=== PATIENT | female | born 1975 | race Caucasian/White ===

== ENCOUNTER 2022-02-02 17:44 | Emergency (ER) | payer OTHER ==
[~2022-02-02] VITALS: Ht 162.5 cm; Wt 56.7 kg
[~2022-02-02 17:44] MED LIST: 'BUSPAR5 MG PO; ALBUTEROL0.09 MG/A2 INH; BACTRIM DS 8001 TA1 PO; CIPRO500 MG PO; CIPRODEX 0.3%-7.5 ML OT; CLINDAMYCIN HC300 MG PO; CLINDAMYCIN150 MG PO; CORDROL20 MG PO; DAYPRO600 M1 PO; DIAZEPAM5 MG PO; DOXYCYCLINE MO100 MG PO; ERYTHROMYCIN OPH1 GM OPH; FLAGYL500 MG PO; FLUVOXAMINE50 MG PO; HYDROCODONE BIT1 T11 PO; IBUPROFEN1 CRY PO; LAMICTAL XR25 MG PO; MOTRIN800 MG PO; PREDNICOT20 MG PO; PRILOSEC20 M1 PO; PROBIOTICA100 MILLIO PO; RISPERIDONE2 M2 PO; SEPTRA DS 800 M1 TAB PO; TRAMADOL HCL50 MG PO; VICODIN 5/500 505 MG PO; VICODIN 500 MG-1 TAB PO; ZANTAC150 MG PO; ZITHROMAX Z PA250 MG PO; ZITHROMAX Z-PA250 MG PO
[2022-02-02 18:33] LABS: BASO % 0.4 % (0.0-1.0); EOS # 0.2 10*3/uL (0.0-0.4); EOS % 2.5 % (1.0-4.0); HEMATOCRIT 40.9 % (37.0-47.0); MEAN CELL VOLUME 93.4 fl (81.0-99.0); MEAN CORPUSCULAR HGB 31.3 pg (27.0-31.0); MEAN CORPUSCULAR HGB CONC 33.5 g/dl (33.0-37.0); MEAN PLATELET VOLUME 10.7 fl (9.6-12.3); MONO # 0.6 10*3/uL (0.1-1.0); MONO % 6.5 % (3.0-9.0); NEUT # 6.1 10*3/uL (2.3-7.9); NEUT % 68.3 % (47.0-73.0); PLATELET COUNT AUTOMATED 256 10*3/uL (130-400); RED BLOOD COUNT 4.38 10*6/uL (4.10-5.10); RED CELL DISTRI WIDTH 12.5 % (0-14.5)
[2022-02-02 18:49] LABS: ALKALINE PHOSPHATASE 80 U/L (45-117); BUN 16 mg/dl (7-24); CHLORIDE 106 mmol/L (98-107); CREATININE 0.78 mg/dL (0.55-1.02); POTASSIUM 3.3 mmol/L (3.5-5.1); SGOT/AST 23 IU/L (3-35); SGPT/ALT 24 U/L (12-78); SODIUM 139 mmol/L (136-145); TOTAL PROTEIN 7.8 gm/dL (6.4-8.2)
[2022-02-03 02:34] VITALS: BP 132/68
== END 2022-02-03 03:45 | disposition short-term general hospital (02) ==
LOC: ED 17:44
PROVIDERS: Physician Assistant
DX: L03.213 Periorbital cellulitis (principal); Z88.0 Allergy status to penicillin; Z79.899 Other long term (current) drug therapy